=== PATIENT | male | born 1965 | race Caucasian/White ===

== ENCOUNTER → 2018-07-26 10:45 | Outpatient (CLI) | payer OTHER, MEDICAID, SELFPAY ==
--- NOTE | 2018-07-26 | DI.RAD.S_ITS ---
PROCEDURE: XR SHOULDER RT MIN 2V INDICATIONS: RIGHT SHOULDER PAIN TECHNIQUE: 3 views of the shoulder were acquired. COMPARISON: None. FINDINGS: Bones: No fractures. There is widening of the acromioclavicular joint compatible type I separation. Marked osseous hypertrophy noted along the inferior margin of the acromion. Marked osseous hypertrophy noted along the inferior margin of the distal clavicle expected region of the coracoclavicular ligament. Moderate to severe glenohumeral joint osteoarthritis with a slight joint space narrowing, marginal osteophytosis, subchondral sclerosis and subchondral cyst formation. No suspicious bony lesions. Visualized ribs appear intact. Soft tissues: No suspicious soft tissue calcifications. IMPRESSION: 1. Marked osseous hypertrophy involving the inferior margin of the distal clavicle and in the acromion. Please correlate with clinical data to exclude impingement syndrome. 2. Type I acromioclavicular joint separation. 3. Moderate to severe glenohumeral joint osteoarthritis. Dictated by: Riya Patino MD, PhD on 07/26/2018 at 14:19 Approved by: Riya Patino MD, PhD on 07/26/2018 at 14:22
--- NOTE | 2018-07-26 | DI.RAD.S_ITS ---
PROCEDURE: XR LUMBAR SPINE 2-3V INDICATIONS: LUMBAR PAIN TECHNIQUE: 3 views of the lumbar spine were acquired. COMPARISON: None. FINDINGS: Bones: 5 [id number] vertebrae are present. There is trace L1-L2, L2-L3 and L3 on L4 retrolisthesis.. No vertebral body compression fractures. No suspicious bony lesions. Moderate to severe L1-L2 degenerative disc disease. Moderate L2-L3, L4 L5 and L5-S1 degenerative disc disease. Mild to moderate L3-L4 degenerative disc disease. Moderate L4-L5 and L5-S1 facet arthropathy. Soft tissues: Overlying bowel gas pattern is normal. No suspicious soft tissue calcifications. IMPRESSION: 1. Multilevel degenerative disc disease. 2. Multilevel facet arthropathy. Dictated by: Riya Patino MD, PhD on 07/26/2018 at 14:15 Approved by: Riya Patino MD, PhD on 07/26/2018 at 14:16
== END ==
DX: S43.101A Unspecified dislocation of right acromioclavicular joint, initial encounter (principal); M54.5 Low back pain; M25.511 Pain in right shoulder; M19.011 Primary osteoarthritis, right shoulder; M51.36 Other intervertebral disc degeneration, lumbar region; M51.37 Other intervertebral disc degeneration, lumbosacral region; M47.816 Spondylosis without myelopathy or radiculopathy, lumbar region; M47.817 Spondylosis without myelopathy or radiculopathy, lumbosacral region
CPT/HCPCS: 72100; 73030

== ENCOUNTER 2020-02-23 01:36 | Emergency (ER) | payer OTHER, MEDICAID, SELFPAY ==
[2020-02-23 01:43] VITALS: BP 162/100; PULSE 125; RESP 18; TEMP 36.8; O2SAT 98; BMI 23.6
--- NOTE | 2020-02-23 01:48 | ED_ITS ---
HPI - General Adult General Chief complaint: Extremity Injury, Upper Stated complaint: Hurt right shoulder Time Seen by Provider: 02/23/20 01:38 PST Source: patient Mode of arrival: Ambulatory Limitations: no limitations History of Present Illness HPI narrative: 54-year-old male with a prior history of drug abuse here for evaluation of a right shoulder injury. Patient states that he has had issues with his right shoulder for some time. He has seen his primary doctor who stated that he had a pulled muscle but this was many weeks/months ago. He states that 4 days ago he picked up a tool box to put to his trailer when he stated that he hurt his shoulder once again. Describes it is the outside of his shoulder. States he has tried ice at home without any improvement. Here in the emergency department because he continues to have symptoms. Related Data Previous Rx's Medication Instructions Recorded ketorolac 10 mg PO Q6H PRN #30 tab 02/23/20 Review of Systems Constitutional Constitutional: Denies fever(s) Cardiovascular Cardiovascular: Denies dyspnea Respiratory Respiratory: Denies dyspnea Musculoskeletal Musculoskeletal: Reports tingling Comments: Right shoulder pain Integumentary/Breasts Skin/Breast: Denies rash Neurologic Neurologic: Reports tingling Hematologic/Lymphatic Hematologic/Lymphatic: Denies easy bleeding and Denies easy bruising Patient History Medical History Drug abuse (Acute) Social History Smoking Status: Current every day smoker Smoking Status: Current every day smoker Substance Use Type: marijuana Exam Initial Vital Signs Initial Vital Signs: Vital Signs Temperature 98.3 F 02/23/20 01:43 PST Pulse Rate 125 H 02/23/20 01:43 PST Respiratory Rate 18 02/23/20 01:43 PST Blood Pressure 162/100 H 02/23/20 01:43 PST Pulse Oximetry 98 02/23/20 01:43 PST Const Limitations: mental status not altered HENMT Head: normal to inspection and normocephalic Resp Effort & Inspection: normal respiratory effort Cardio Rate: tachycardic Skin Lesions: no lesions Rashes: no rashes Neuro Sensory Exam: no sensory deficits noted Extrem Other: Difficult to obtain in the exam of his right shoulder secondary to the discomfort that he is having. He seems to have discomfort along the scapula in the posterior aspect of the shoulder and also along the biceps tendon. Has decreased range of motion secondary to pain however passive range of motion can get to 90? before he has discomfort. Course Orders Ordered: Cyclobenzaprine HCl (Flexeril) 10 mg PO NOW ONE Stop: 02/23/20 02:10 Cyclobenzaprine HCl (Flexeril 10 Mg Prepack) 1 bottle MISC SEEINSTR ONE Stop: 02/23/20 02:10 Discontinued Medications Al Hydrox/Mg Hydrox/Simethicone 20 ml/ Lidocaine HCl 15 ml 0 ml PO NOW ONE Stop: 02/23/20 01:49 PST Last Admin: 02/23/20 01:56 PST Dose: 20 ml Documented by: MALIK Ketorolac Tromethamine (Toradol) 30 mg IM NOW ONE Stop: 02/23/20 01:49 PST Last Admin: 02/23/20 01:57 PST Dose: 30 mg Documented by: MALIK Vital Signs Vital signs: Vital Signs - 8 hr 02/23/20 01:43 PST Temperature 98.3 F Pulse Rate 125 H Respiratory Rate 18 Blood Pressure 162/100 H Pulse Oximetry 98 Medical Decision Making MDM Narrative Medical decision making narrative: Low suspicion for bony injury. I feel we can hold on radiologic studies. Patient stated that he did not want any opioid medications secondary to his prior drug history. Very difficult to get a good exam of his right shoulder secondary to his discomfort. He was given a shot of Toradol. He was given a GI cocktail because he states that the discomfort was causing him to have some reflux. No further workup needed here in the emergency department. Will send him home with anti-inflammatories. He was instructed that he needs to contact his primary provider for follow-up to discuss potential MRI versus physical therapy. Discharge Plan Departure Patient Disposition: Home Clinical Impression: Pain in right shoulder Qualifiers: Chronicity: unspecified Qualified Code(s): M25.511 - Pain in right shoulder Instructions: DI for Shoulder Pain Activity Restrictions/Additional Instructions: Unfortunately it is difficult to get a good exam of your shoulder or in this much discomfort. I recommend that you take the anti-inflammatories as directed and contact your primary provider to discuss further workup to include either a referral to see Orthopedics, referral to see physical therapy for the indica tions to have an MRI. Prescriptions: New ketorolac 10 mg tablet 10 mg PO Q6H PRN (Reason: pain) Qty: 30 RF: 0
[2020-02-23] MEDS: MAG HYDROX/ALUMINUM/SIMETH SUS 20 ML, LIDOCAINE VISCOUS 2% 15 ML PO (01:56)
[2020-02-23] MEDS: KETOROLAC 60 MG/2 ML VIAL 30 MG IM (01:57)
[2020-02-23] MEDS: CYCLOBENZAPRINE 10 MG PREPACK 1 BOTTLE MISC (02:13)
[2020-02-23] MEDS: CYCLOBENZAPRINE 10 MG TABLET PO (02:16)
== END 2020-02-23 02:19 | disposition home or self-care (01) ==
PROVIDERS: Emergency Provider Emergency Medicine
DX: M25.511 Pain in right shoulder (principal); R20.2 Paresthesia of skin
CPT/HCPCS: 96372; 99283; J1885